=== PATIENT | female | born 1945 | race Caucasian/White ===

== ENCOUNTER 2016-09-16 12:32 | Emergency (ER) | payer MEDICARE, OTHER | END 2016-09-16 16:19 | disposition home or self-care (01) | DX: R07.89 Other chest pain (principal); R10.13 Epigastric pain; K76.0 Fatty (change of) liver, not elsewhere classified; Q44.6 Cystic disease of liver; I10 Essential (primary) hypertension; E78.00 Pure hypercholesterolemia, unspecified; J45.909 Unspecified asthma, uncomplicated; M79.7 Fibromyalgia; Z79.82 Long term (current) use of aspirin ==

== ENCOUNTER 2017-05-17 10:15 | Outpatient (CLI) | payer MEDICARE, OTHER | END 2017-05-17 10:16 | disposition home or self-care (01) | LOC: SC 10:15 | PROVIDERS: ATTEND Internal Medicine Pulmonary Disease | DX: G47.33 Obstructive sleep apnea (adult) (pediatric) (principal) | CPT/HCPCS: 99213; G0463; 99212 ==

== ENCOUNTER 2017-08-06 13:34 | Outpatient (CLI) | payer MEDICARE, OTHER ==
--- NOTE | 2017-08-06 15:46 | XRAY Report ---
THREE VIEW LEFT ANKLE: 08/06/2017 CLINICAL INDICATION: Pain. FINDINGS: AP, lateral, oblique views of the left ankle demonstrate no evidence of acute fracture or dislocation. Lateral greater than medial soft tissue swelling is present. No effusion is seen. Small plantar calcaneal spurring is noted. IMPRESSION: SOFT TISSUE SWELLING, BUT NO EVIDENCE OF ACUTE FRACTURE. TD: 08/06/2017 15:45
--- NOTE | 2017-08-06 15:51 | XRAY Report ---
THREE VIEW LEFT FOOT: 08/06/2017 CLINICAL INDICATION: Pain. FINDINGS: AP, lateral, and oblique views of left foot demonstrate mild osteoarthritis of the first metatarsophalangeal joint. There is no evidence of acute fracture or dislocation. No radiopaque foreign body is seen in the soft tissues. IMPRESSION: MILD OSTEOARTHRITIS. TD: 08/06/2017 15:47
== END 2017-08-06 13:35 | disposition home or self-care (01) ==
LOC: DI.S 13:34
PROVIDERS: ATTEND Physician Assistant Medical
DX: M19.072 Primary osteoarthritis, left ankle and foot (principal); R22.42 Localized swelling, mass and lump, left lower limb

== ENCOUNTER 2017-08-18 13:50 | Outpatient (CLI) | payer MEDICARE, OTHER ==
--- NOTE | 2017-08-18 15:02 | XRAY Report ---
THREE VIEW LEFT ANKLE: 08/18/2017 CLINICAL INDICATION: Hematoma, pain. FINDINGS: AP, oblique, lateral views of the left ankle are compared to previous films of 08/06/2017. There is no evidence of fracture. Soft tissue swelling appears stable. No effusion is present. Degenerative changes are stable. IMPRESSION: MILD DEGENERATIVE CHANGES. SOFT TISSUE SWELLING. NO EVIDENCE OF FRACTURE. TD: 08/18/2017 15:00
--- NOTE | 2017-08-18 15:03 | XRAY Report ---
TWO VIEW LEFT LOWER LE08/18/2017 CLINICAL INDICATION: Persistent pain, hematoma. FINDINGS: Frontal and lateral views of the left lower leg demonstrate no evidence of acute fracture. Soft tissue swelling is present. No foreign body is seen. IMPRESSION: SOFT TISSUE SWELLING, BUT NO EVIDENCE OF ACUTE FRACTURE. TD: 08/18/2017 15:02
== END 2017-08-18 13:51 | disposition home or self-care (01) ==
LOC: DI 13:50
PROVIDERS: ATTEND Family Medicine
DX: M19.072 Primary osteoarthritis, left ankle and foot (principal); R22.42 Localized swelling, mass and lump, left lower limb

== ENCOUNTER 2017-09-09 12:41 | Outpatient (CLI) | payer MEDICARE, OTHER ==
[2017-09-09 17:58] LABS: CHOL/HDL RATIO 3.4 (<4.4); CHOLESTEROL 156 mg/dL; HDL CHOLESTEROL 46 mg/dL; LDL CHOLESTEROL,CALCULATED 85 mg/dL; LDL/HDL RATIO 1.8 (<4.4); VLDL CHOLESTEROL 25 mg/dL
== END 2017-09-09 12:42 | disposition home or self-care (01) ==
LOC: LAB.F 12:41
PROVIDERS: ATTEND Physician Assistant Medical
DX: Z00.00 Encounter for general adult medical examination without abnormal findings (principal); E78.5 Hyperlipidemia, unspecified
CPT/HCPCS: 36415; 80061; 83721

== ENCOUNTER 2017-09-16 08:00 | Outpatient (CLI) | payer MEDICARE, OTHER | END 2017-09-16 08:01 | disposition home or self-care (01) | LOC: LAB.F 08:00 | PROVIDERS: ATTEND Physician Assistant Medical | DX: R22.42 Localized swelling, mass and lump, left lower limb (principal); M79.605 Pain in left leg | CPT/HCPCS: 36415; 85379 ==

== ENCOUNTER 2017-09-29 10:56 | Outpatient (CLI) | payer MEDICARE, OTHER ==
--- NOTE | 2017-09-29 12:43 | Ultrasound Report ---
LEFT LEG VENOUS DUPLEX: 09/29/2017 CLINICAL INDICATION: Localized swelling. TECHNIQUE: Real-time sonographic vascular imaging was performed by the master plumber through the left leg utilizing both color flow and Doppler spectral analysis. Multiple bottling equipment sales representative static images were saved for review. FINDINGS: A left lower extremity venous sonogram is performed revealing the common femoral, superficial femoral, profunda femoris, and popliteal veins to be adequately visualized without intraluminal defects. There is normal venous compression, augmentation, phasicity, and spontaneity of venous flow. In the calf, the visualized more cephalad portions of posterior tibial and peroneal veins are grossly compressible, without filling defects. Incidental note is made of a 1.5 cm Miller's cyst in the left popliteal fossa. IMPRESSION: NO EVIDENCE OF DEEP VENOUS THROMBOSIS. TD: 09/29/2017 12:42
== END 2017-09-29 10:57 | disposition home or self-care (01) ==
LOC: DI 10:56
PROVIDERS: ATTEND Physician Assistant Medical
DX: R22.42 Localized swelling, mass and lump, left lower limb (principal); M79.605 Pain in left leg

== ENCOUNTER 2017-12-02 12:08 | Outpatient (CLI) | payer MEDICARE, OTHER ==
[2017-12-02 17:33] LABS: ALBUMIN 4.1 g/dL (3.2-5.5); ALBUMIN/GLOBULIN RATIO 1.8 (1.0-2.2); BILIRUBIN,TOTAL 0.5 mg/dL (0.2-1.0); CALCIUM 8.8 mg/dL (8.5-10.3); CREATININE 0.7 mg/dL (0.4-1.0); TOTAL PROTEIN 6.4 g/dL (6.7-8.2)
== END 2017-12-02 12:09 | disposition home or self-care (01) ==
LOC: LAB.F 12:08
PROVIDERS: ATTEND Physician Assistant Medical
DX: I10 Essential (primary) hypertension (principal)
CPT/HCPCS: 36415; 80053

== ENCOUNTER 2018-06-28 13:04 | Outpatient (CLI) | payer MEDICARE, OTHER | END 2018-06-28 13:05 | disposition home or self-care (01) | LOC: SC 13:04 | PROVIDERS: ATTEND Internal Medicine Pulmonary Disease | DX: G47.33 Obstructive sleep apnea (adult) (pediatric) (principal) | CPT/HCPCS: 99213; G0463; 99212 ==

== ENCOUNTER 2018-07-07 11:29 | Outpatient (CLI) | payer MEDICARE, OTHER ==
[2018-07-07 17:37] LABS: BASOPHILS # (AUTO) 0.1 10^3/uL (0.0-0.1); BASOPHILS % (AUTO) 1.1 %; EOSINOPHILS # (AUTO) 0.1 10^3/uL (0.0-0.7); EOSINOPHILS % (AUTO) 2.7 %; HGB - HEMOGLOBIN 13.2 g/dL (12.0-16.0); LYMPHOCYTES # (AUTO) 1.8 10^3/uL (1.5-3.5); LYMPHOCYTES % (AUTO) 38.2 %; MEAN CORPUSCULAR HEMOGLOBIN 28.8 pg (27.0-31.0); MEAN CORPUSCULAR HGB CONC 33.1 g/dL (32.0-36.0); MEAN CORPUSCULAR VOLUME 87.1 fL (81.0-99.0); MEAN PLATELET VOLUME 8.2 fL (7.9-10.8); MONOCYTES # (AUTO) 0.4 10^3/uL (0.0-1.0); MONOCYTES % (AUTO) 8.7 %; NEUTROPHILS # (AUTO) 2.3 10^3/uL (1.5-6.6); NEUTROPHILS % (AUTO) 49.3 %; PLT - PLATELET COUNT 263 10^3/uL (130-450); RED BLOOD COUNT 4.57 10^6/uL (4.20-5.40); RED CELL DISTRIBUTION WIDTH 13.8 % (12.0-15.0); WHITE BLOOD COUNT 4.6 x10^3/uL (4.8-10.8)
[2018-07-07 19:03] LABS: ALBUMIN 4.3 g/dL (3.2-5.5); ALBUMIN/GLOBULIN RATIO 1.6 (1.0-2.2); ALKALINE PHOSPHATASE 51 IU/L (42-121); ALT ALANINE AMINOTRANSFERASE 16 IU/L (10-60); AST ASPARTATE AMINOTRANSFERASE 20 IU/L (10-42); BILIRUBIN,TOTAL 0.6 mg/dL (0.2-1.0); BUN - BLOOD UREA NITROGEN 16 mg/dL (6-20); CALCIUM 9.3 mg/dL (8.5-10.3); CARBON DIOXIDE - CO2 29 mmol/L (21-32); CHLORIDE 102 mmol/L (101-111); CHOL/HDL RATIO 3.5 (<4.4); CHOLESTEROL 180 mg/dL; CREATININE 0.8 mg/dL (0.4-1.0); GFR - MDRD 70 (>89); GLUCOSE 86 mg/dL (70-100); HDL CHOLESTEROL 51 mg/dL; LDL CHOLESTEROL,CALCULATED 101 mg/dL; SODIUM 139 mmol/L (135-145); VLDL CHOLESTEROL 28 mg/dL
[2018-07-07 19:40] LABS: HB2 TOTAL 13.7 g/dL; HEMOGLOBIN A1C 0.49 g/dL; HEMOGLOBIN A1C % 5.4 % (4.6-6.2)
== END 2018-07-07 11:30 | disposition home or self-care (01) ==
LOC: LAB.F 11:29
PROVIDERS: ATTEND Physician Assistant Medical
DX: I10 Essential (primary) hypertension (principal); E78.5 Hyperlipidemia, unspecified; R73.9 Hyperglycemia, unspecified; R73.01 Impaired fasting glucose
CPT/HCPCS: 36415; 80053; 80061; 83036; 83721; 85025

== ENCOUNTER 2018-08-09 11:42 | Outpatient (CLI) | payer MEDICARE, OTHER ==
--- NOTE | 2018-08-10 10:06 | DEXA Report ---
Reason: ASYMPTOMATIC MENOPAUSAL STATE Procedure Date: 08/09/2018 Accession Number: [id number] / [id number] Procedure: DEX - Dexa Spine and/or Hip CPT Code: FULL RESULT: EXAM: Dexa Spine and/or Hip DATE: 08/09/2018 1:11 PM CLINICAL HISTORY: ASYMPTOMATIC MENOPAUSAL STATE TECHNIQUE: Dual energy x-ray absorptiometry (DXA) was performed on a tvCompass System. Regions measured are the AP Spine, femoral neck, and if needed forearm. COMPARISON: None. In accordance with the International Society for Clinical Densitometry (ISCD) guidelines, data from previous exams may be reanalyzed using current recommendations and techniques. This is done to allow a more accurate basis for comparison with the current study. FINDINGS: The data for the lumbar spine is as follows: BMD (g/cm/cm) T-SCORE Z-SCORE REGION L1 0.795 -2.8 -1.8 L2 0.812 -3.2 -2.2 L3 0.844 -3.0 -1.9 L4 0.903 -2.5 -1.5 TOTAL 0.842 -2.8 -1.8 NOTE: All evaluable vertebrae are used for classification The data for the hip is as follows: BMD (g/cm/cm) T-SCORE Z-SCORE REGION Neck 0.736 -2.2 -0.8 TOTAL 0.771 -1.9 -0.7 NOTE: The femoral neck or total proximal femur, whichever is lowest, is used for classification. IMPRESSION: THE WHO CLASSIFICATION BASED ON THE INTERNATIONAL REFERENCE STANDARD IS OSTEOPOROSIS. THE FRACTURE RISK IS HIGH. RECOMMENDATION: Patients with diagnosis of osteoporosis or osteopenia should have regular bone mineral density assessment. For those eligible for Medicare, routine testing is allowed once every 2 years. Testing frequency can be increased for patients who have rapidly progressing disease or for those who are receiving medical therapy to restore bone mass. COMMENT: World Health Organization (WHO) definitions for osteoporosis and osteopenia: NORMAL BMD: T-score at -1.0 or higher, fracture risk is low OSTEOPENIA BMD: T-score between -1.0 and -2.5, fracture risk is increased. OSTEOPOROSIS BMD: T-score at -2.5 or lower, fracture risk is high. National Osteoporosis Foundation recommends: 1. Obtain adequate dietary calcium (at least 1200 mg per day) and vitamin D (400-800 international units per day). 2. Participate, as appropriate, in regular weightbearing and muscle-strengthening exercise. 3. Avoid tobacco use and reduce alcohol and caffeine intake. 4. For more detailed information see the website at www.NOF.org.
== END 2018-08-09 11:43 | disposition home or self-care (01) ==
LOC: DI 11:42
PROVIDERS: ATTEND Physician Assistant Medical
DX: M81.0 Age-related osteoporosis without current pathological fracture (principal)
CPT/HCPCS: 77080

== ENCOUNTER 2018-08-09 11:45 | Outpatient (CLI) | payer MEDICARE, OTHER ==
--- NOTE | 2018-08-10 09:28 | Mammography Report ---
Reason: SCREENING MAMMO Procedure Date: 08/09/2018 Accession Number: [id number] / [id number] Procedure: VOLODYMYR - Screening Mammo w/Jay Jay CPT Code: FULL RESULT: EXAM: Screening Mammo w/Jay Jay DATE: 08/09/2018 1:29 PM CLINICAL HISTORY: Screening encounter. History of early menses. TECHNIQUE: Bilateral CC and MLO views were obtained. A right laterally exaggerated CC views obtained. COMPARISON: None FINDINGS: The breasts demonstrate scattered fibroglandular densities bilaterally. No suspicious masses, clustered microcalcifications, or regions of architectural distortion are identified. IMPRESSION: Negative examination RECOMMENDATION: Routine annual screening unless otherwise clinically indicated. BIRADS CATEGORY 1: Negative STANDARD QUALIFYING STATEMENTS: 1. This examination was not reviewed with the aid of Computer-Aided Detection (CAD). 2. A negative or benign imaging report should not delay biopsy if clinically suspicious findings are present. Consider surgical consultation if warrented. More than 5% of cancers are not identified by imaging. 3. Dense breasts may obscure an underlying neoplasm. 4. This examination was reviewed with the aid of 3D breast imaging (tomosynthesis).
== END 2018-08-09 11:46 | disposition home or self-care (01) ==
LOC: DI 11:45
PROVIDERS: ATTEND Physician Assistant Medical
DX: Z12.31 Encounter for screening mammogram for malignant neoplasm of breast (principal)
CPT/HCPCS: 77063; 77067

== ENCOUNTER 2018-08-14 17:29 | Emergency (ER) | payer MEDICARE, OTHER ==
--- NOTE | 2018-08-14 18:39 | XRAY Report ---
Reason: injury Procedure Date: 08/14/2018 Accession Number: [id number] / [id number] Procedure: XR - Wrist 4 View LT CPT Code: FULL RESULT: EXAM: LEFT WRIST RADIOGRAPHY EXAM DATE: 08/14/2018 06:23 PM. CLINICAL HISTORY: Injury. COMPARISON: None. TECHNIQUE: 4 views. FINDINGS: Bones: Mildly comminuted, mildly impacted intra-articular distal radial fracture is seen with overall dorsal angulation of the distal radius. Osteopenia evident. Joints: Normal. No subluxations. Soft Tissues: Soft tissue swelling at the wrist. IMPRESSION: 1. Mildly comminuted, mildly impacted interarticular distal radial fracture is seen with overall dorsal angulation. RADIA
[2018-08-14] MEDS ORDERED: BUPIVACAINE 0.5% PF 10 ML VIAL SUBQ STA (18:47)
--- NOTE | 2018-08-14 19:18 | ED Physician Documentation ---
History of Present Illness - Stated complaint Stated Complaint: LT WRIST INJ - Chief complaint Chief Complaint: Ext Problem - History obtained from History obtained from: Patient - History of Present Illness Timing: Today Pain level max: 6 Pain level now: 5 - Additonal information Additional information: 73-year-old female was helping to move furniture when she felt a pop in her wrist. She is right-handed. Pain is in the left wrist. Has had a fracture in this wrist in the past. Worse with movement and better with rest and ice. 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 - Present Medications Home Medications: Ambulatory Orders Medication Instructions Recorded Confirmed Aspirin [Aspirin EC] 81 mg PO BID 09/16/16 08/14/18 Losartan [Cozaar] 100 mg PO DAILY 09/16/16 08/14/18 Metoprolol Tartrate 50 mg PO DAILY 09/16/16 08/14/18 Omeprazole [PriLOSEC] 20 mg PO DAILY 09/16/16 08/14/18 Spironolactone 25 mg PO DAILY 09/16/16 08/14/18 Hydrocodone/Acetaminophen 1 - 2 each PO Q6H PRN #14 tablet 08/14/18 [Hydrocodon-Acetaminophen 5-325] - Allergies Allergies/Adverse Reactions: Allergies Allergy/AdvReac Type Severity Reaction Status Date / Time Penicillins Allergy Unknown Verified 08/14/18 17:41 - Social History Does the pt smoke?: No Smoking Status: Never smoker Does the pt drink ETOH?: Yes Does the pt have substance abuse?: No - Immunizations Immunizations are current?: Yes PD ED PE NORMAL - Vitals Vital signs reviewed: Yes - General General: Alert and oriented X 3, No acute distress - HEENT HEENT: Moist mucous membranes - Neck Neck: Supple, no meningeal sign - Cardiac Cardiac: RRR - Respiratory Respiratory: No respiratory distress, Clear bilaterally - Derm Derm: Warm and dry - Extremities Extremities: Other (Tender to palpation over the dorsal aspect of the left wrist, specifically near the distal radius. No gross deformity. Neurovascularly intact.) - Neuro Neuro: Alert and oriented X 3 Results - Vitals Vitals: Vital Signs - 24 hr 08/14/18 08/14/18 17:39 20:32 Temperature 36.3 C L Heart Rate 62 50 L Respiratory 20 19 Rate Blood Pressure 151/101 H 147/87 H O2 Saturation 99 98 Oxygen O2 Source Room air - Rads (name of study) Left wrist x-ray Radiology: Prelim report reviewed, EMP read contemporaneously, See rad report (Mildly comminuted, mildly impacted intra-articular distal radius fracture is seen with overall dorsal angulation.) Left wrist x-ray postreduction Radiology: Prelim report reviewed, EMP read contemporaneously, See rad report (Slightly improved alignment of transverse distal radius fracture with mild residual dorsal lateral displacement of the dominant distal fracture fragment) Procedures - Splint (location) Left forearm/wrist Splint applied by: Physician, Tech Type of splint: Fiberglass, Short arm, Sugar tong Other: Patient tolerated well, No complications, Neurovascular intact, Sling provided - Reduction Body part reduced: Left, Wrist Fracture or dislocation: Fracture Anesthesia: Hematoma block, Marcaine (enter cc) (Marcaine 0.5%, 10 mL's) Reduction aftercare: NV intact, Xray confirms reduction, Alignment improved, Splint applied, Sling, Patient tolerated well PD MEDICAL DECISION MAKING - ED course Complexity details: reviewed results, re-evaluated patient, considered differential, d/w patient, d/w program evaluation consultant ED course: 73-year-old female presents to the emergency department with a left distal radius fracture. Reduced under hematoma block. Tolerated well. Discussed the case and reviewed the images with Dr. Oswald, orthopedics who recommends follow-up in clinic in 4-5 days. Neurovascularly intact. Patient counseled regarding signs and symptoms for which I believe and urgent re-evaluation would be necessary. Patient with good understanding of and agreement to plan and is comfortable going home at this time This document was made in part using voice recognition software. While efforts are made to proofread this document, sound alike and grammatical errors may occur. Departure - Departure Disposition: 01 Home, Self Care Clinical Impression: Distal radius fracture, left Qualifiers: Encounter type: initial encounter Fracture type: closed Fracture morphology: unspecified fracture morphology Qualified Code(s): S52.502A - Unspecified fracture of the lower end of left radius, initial encounter for closed fracture Condition: Good Instructions: ED Fx Colles Wrist Redu Requ Follow-Up: Margarette Benitez PA-C [Primary Care Provider] - [facility] [Provider Group] Prescriptions: Hydrocodone/Acetaminophen [Hydrocodon-Acetaminophen 5-325] 1 - 2 each PO Q6H PRN #14 tablet PRN Reason: pain Comments: Follow-up with orthopedics in approximately 4-5 days for a repeat x-ray and to be changed into a cast at that time. Return if you worsen. I discussed your care with Dr. Margret howell. Do not drink alcohol or drive while on narcotic pain medicine. Note that many narcotic pain relievers also contain tylenol/acetaminophen. Please ensure that your total dose of acetaminophen from all sources does not exceed 3 grams (3000mg) per day. You may constipated on this medication, take a stool softener such as "Colace" twice a day while you are on it. Also recommend a debf-twv-vbvftcc laxative such as senna or MiraLAX any day that you do not have a bowel movement. If you received narcotic pain medication in the emergency department, do not drive or operate machinery for the next 24 hours. Discharge Date/Time: 08/14/18 20:33
--- NOTE | 2018-08-14 20:30 | XRAY Report ---
Reason: post reduction Procedure Date: 08/14/2018 Accession Number: [id number] / [id number] Procedure: XR - Wrist 2 View LT CPT Code: FULL RESULT: EXAM: LEFT WRIST RADIOGRAPHY EXAM DATE: 08/14/2018 08:07 PM. CLINICAL HISTORY: Left wrist fracture, postreduction COMPARISON: WRIST 4 VIEW LT 08/14/2018 6:09 PM. TECHNIQUE: 2 views. FINDINGS: Bones: Redemonstration of transverse distal radial fracture, with interval decreased impaction and dorsal angulation at the fracture site, and residual approximately 3 mm lateral and 3 mm dorsal displacement of the dominant distal fracture fragment. Joints: Normal alignment. Mild osteophytosis at the first CMC joint, as before, compatible with osteoarthritis. Soft Tissues: Swelling overlying the fracture site. IMPRESSION: Slightly improved alignment of transverse distal radial fracture with mild residual dorsolateral displacement of the dominant distal fracture fragment. RADIA
[2018-08-14 20:34] VITALS: BP 147/87
== END 2018-08-14 20:33 | disposition home or self-care (01) ==
LOC: ED 17:29
DX: S52.502A Unspecified fracture of the lower end of left radius, initial encounter for closed fracture (principal); X50.1XXA Overexertion from prolonged static or awkward postures, initial encounter; Y93.89 Activity, other specified; I10 Essential (primary) hypertension; E78.00 Pure hypercholesterolemia, unspecified; Z79.82 Long term (current) use of aspirin
CPT/HCPCS: 25600; 25605; 29125; 99283; 99284

== ENCOUNTER 2018-12-06 12:50 | Outpatient (CLI) | payer MEDICARE, OTHER | END 2018-12-06 12:51 | disposition home or self-care (01) | LOC: SC 12:50 | PROVIDERS: ATTEND Nurse Practitioner Family | DX: G47.33 Obstructive sleep apnea (adult) (pediatric) (principal) | CPT/HCPCS: 99214; G0463; 99212 ==

== ENCOUNTER 2019-03-29 11:03 | Outpatient (CLI) | payer MEDICARE, OTHER ==
[2019-03-29 12:25] VITALS: BP 128/64
--- NOTE | 2019-03-29 12:26 | SLEEP CARE CONSULTATION ---
Information from patient questionnaire entered by Thania Mejia. I have reviewed and concur with the information entered by Thania Mejia. This document represents the service I personally performed and the decisions made by me, Belinda Portillo, RN, MSN, CHIEF SPECIALIST LEED. History of Present Illness Previous diagnosis: Severe, Obstructive Sleep Apnea-Hypopnea Syndrome AHI: 38.8 Reason for CPAP/BiPAP follow up: other (2 month) Equipment type: CPAP Equipment obtained from: [facility] Mask style: Nasal Mask brand: Respironics Backup mask available: Yes Last cushion change: 2 weeks ago HPI additional information: Restarted CPAP and states has been using nightly. CPAP Compliance Data - Data Reviewed with Patient Average duration of nightly device use: 8.65 Compliance rate %: 100 (60 days) Current pressure setting (cmH2O): 6-8 Humidity settin Heated hose settin Average residual AHI: 3.4 Average large leak: 47 mins 56 sec Subjective Patient concerns: reports: air blowing in eyes (when mask dislodges 2-4 times a night), mask leak noise, condensation in mask/hose (rare), nasal congestion (seasonally - mild now after cold), dry mouth, nose, throat (mouth - occasionally ), other (strap will not stay at neck - constant dislodging mask in the night). denies: aerophagia, mask discomfort, epistaxis Observed to snore while using device: No Current pressure setting perceived as: comfortable On therapy, patient: reports: sleeping better, awakening more refreshed, being more awake and alert during the day, more rested overall. denies: drowsiness while driving Initial [place] Sleepiness Scale score: 3 Current [place] Sleepiness Scale score: 6 Allergies and Home Medications Known drug allergies: Yes (vicodin , penicillin) Home medication list reviewed: Yes (no changes ) Allergy and home medication list: Medication Name (generic/name brand) Strength & Dosage Spironolactone 25mg tab one every morning Metoprolol Tartrate 50mg tab one daily Losartan Potassium 100mg tab one am and pm Diclofenac Sodium 1% Transdermal Gel Apply 2-4 grams four times daily, prn Omeprazole delayed release 20mg cap one daily Multivitamins Tab twice daily Fish Oil Concentrate 1000mg cap one daily Red Yeast Rice 600mg cap one daily at bedtime Magnesium Oxide 400mg cap one daily at bedtime Aspirin EC delayed release 8mg tab one twice daily Xenia Root 550mg cap one daily Flaxseed Oil 1300mg cap one daily Vitamin B-12 250mcg tab one daily Glucosamine Complex Tab one daily Cinnamon Cap one daily Turmeric [employer] brand 1 cap daily CoQ10 100mg cap Kyolic (garlic) 100mg Allergy List Penicillin V Potassium Vicodin Review of Systems Review of systems same as previous: No (recovering from recent cold with residual cough) Physical Exam Blood Pressure: 128/64 Cuff size: long Heart Rate: 50 O2 Saturation: 98 Height: 5 ft 5 in Weight: 183 lb 6.4 oz Body Mass Index: 30.5 BMI Classification: Obesity Class 1 Lungs: clear bilaterally Impression and Plan 1. Obstructive Sleep Apnea-Hypopnea Syndrome, severe, with good treatment compliance and good apnea control. On CPAP therapy, the patient has better sleep quality and is more rested overall. For nasal congestion and oral dryness, she was shown how to increase the humidity on a sample CPAP with hand writtent instructions. The heated hose only needs to be raised if condensation. For her mask dislodging, I will order the headgear adaptor to help fit better which could also reduce oral dryness from mask leaks. Patient's apnea severity and rationale for treatment to reduce apnea, improve sleep quality and reduce cardiovascular and cerebrovascular events was reviewed. I also reviewed the benefit of consistent device use of CPAP for hypertension, gastric reflux, fibromyalgia. * Continue CPAP pressure at 6-8 cmH2O * adjust humidity * headgear adaptor * Notify me if snoring with mask or feeling that the pressure is too much or too little * Attempt to lose weight * Return for follow up in 3 months , or sooner if concerns arise I spent 100% of this 30 minute visit face to face with the patient with greater than 50% of this was spent time counseling the patient and coordination of care.
== END 2019-03-29 11:04 | disposition home or self-care (01) ==
LOC: SC 11:03
PROVIDERS: ATTEND Nurse Practitioner Family
DX: G47.33 Obstructive sleep apnea (adult) (pediatric) (principal)
CPT/HCPCS: 99214; G0463; 99212

== ENCOUNTER 2019-09-20 16:25 | Outpatient (CLI) | payer MEDICARE, OTHER ==
--- NOTE | 2019-09-20 13:55 | SLEEP CARE CONSULTATION ---
Information from patient questionnaire entered by Leonila Miller. I have reviewed and concur with the information entered by Leonila Miller. This document represents the service I personally performed and the decisions made by me, Belinda Portillo, RN, MSN, PUBLIC SAFETY OFFICER. History of Present Illness Service Date and Time: 09/20/2019 1330 Previous diagnosis: Severe, Obstructive Sleep Apnea-Hypopnea Syndrome AHI: 38.8 Reason for follow up: six month Equipment type: CPAP Equipment obtained from: [facility] (delay in getting equipment due to DME having wrong address until recently corrected) Mask style: Nasal Mask brand: Respironics Backup mask available: Yes Last cushion change: 1-2 weeks ago Prior sleep studies: Yes CPAP Compliance Data - Data Reviewed with Patient Average duration of nightly device use: 8h 20m Compliance rate %: 97.8 Current pressure setting (cmH2O): 6-8 Humidity settin Heated hose settin Average residual AHI: 2.9 Average large leak: 27m 4s Subjective Patient concerns: reports: dry mouth, nose, throat (dry mouth sometimes but none since new headgear), other (mask disloding and mask leaks resolved with new headgear attachment - slept without disruption since then). denies: aerophagia, mask discomfort, air blowing in eyes, mask leak noise, condensation in mask/hose, nasal congestion, epistaxis Observed to snore while using device: No Current pressure setting perceived as: comfortable On therapy, patient: reports: sleeping better, awakening more refreshed, being more awake and alert during the day, more rested overall, other. denies: drowsiness while driving Initial [place] Sleepiness Scale score: 3 Allergies and Home Medications Home medication list reviewed: No (no changes stated) Review of Systems Review of systems same as previous: Yes Physical Exam Height: 5 ft 5 in Impression and Plan 1. Obstructive Sleep Apnea-Hypopnea Syndrome, severe, with good treatment compliance and good apnea control. On CPAP therapy, the patient has better sleep quality and is more rested overall. Since receiving her new headgear the past 4 days, she has slept through the night without disruption of mask dislodging or mask leaks. Her oral dryness also has since resolved. She is very pleased with benefit of CPAP especially since her new headgear. If return of oral dryness, she is to adjust humidity higher. There was a delay in receiving her CPAP supplies due to wrong address input from DME that is now corrected. Patient's apnea severity and rationale for treatment to reduce apnea, improve sleep quality and reduce cardiovascular and cerebrovascular events was reviewed. I also reviewed the additional benefit of consistent device use of CPAP for those with hypertension, and arrhythmia. * Continue CPAP pressure at 6-8 cmH2O * Adjust humidity * Notify me if snoring with mask or feeling that the pressure is too much or too little * Call this office if any problems using CPAP * Return for follow up in 1 year, or sooner if concerns arise Visit Type: Telehealth Phone (to minimize the risk of COVOD 19 exposure, the patient agrees to this telehealth visit and billing of her insurance) Location of Provider: Home Patient agrees and consents to this telehealth visit type: Yes Time Spent with Patient (minutes): 10 Provider Statement: I spent 100% of the Telehealth Phone Call with the patient with greater than 50% spent counseling the patient and coordination of care.
== END 2019-09-20 16:26 | disposition home or self-care (01) ==
LOC: SC 16:25
PROVIDERS: ATTEND Nurse Practitioner Family
DX: G47.33 Obstructive sleep apnea (adult) (pediatric) (principal)

== ENCOUNTER 2020-01-17 08:00 | Outpatient (CLI) | payer MEDICARE, OTHER ==
[2020-01-17 15:15] LABS: BASOPHILS # (AUTO) 0.1 10^3/uL (0.0-0.1); EOSINOPHILS # (AUTO) 0.1 10^3/uL (0.0-0.7); HGB - HEMOGLOBIN 13.4 g/dL (12.0-16.0); LYMPHOCYTES # (AUTO) 1.7 10^3/uL (1.5-3.5); LYMPHOCYTES % (AUTO) 35.3 %; MEAN CORPUSCULAR HEMOGLOBIN 28.7 pg (27.0-31.0); MEAN CORPUSCULAR HGB CONC 31.3 g/dL (32.0-36.0); MEAN CORPUSCULAR VOLUME 91.6 fL (81.0-99.0); MONOCYTES # (AUTO) 0.4 10^3/uL (0.0-1.0); MONOCYTES % (AUTO) 7.6 %; NEUTROPHILS # (AUTO) 2.6 10^3/uL (1.5-6.6); NEUTROPHILS % (AUTO) 53.7 %; PLT - PLATELET COUNT 233 10^3/uL (130-450); RED BLOOD COUNT 4.67 10^6/uL (4.20-5.40); RED CELL DISTRIBUTION WIDTH 12.8 % (12.0-15.0); WHITE BLOOD COUNT 4.9 x10^3/uL (4.8-10.8)
[2020-01-17 15:19] LABS: BILIRUBIN,URINE NEGATIVE (NEGATIVE); GLUCOSE, URINE (UA) NEGATIVE (NEGATIVE); KETONES,URINE (UA) NEGATIVE (NEGATIVE); LEUKOCYTE ESTERASE, URINE NEGATIVE (NEGATIVE); NITRITE,URINE NEGATIVE (NEGATIVE); OCCULT BLOOD,URINE NEGATIVE (NEGATIVE); PH,URINE 5.5 PH (5.0-7.5); PROTEIN,URINE NEGATIVE (NEGATIVE); UROBILINOGEN,URINE 0.2 (NORMAL) E.U./dL (NORMAL)
[2020-01-17 15:34] LABS: CLARITY,URINE CLEAR (CLEAR)
[2020-01-17 15:44] LABS: BACTERIA,URINE Few /HPF (None Seen); RBC,URINE None Seen /HPF (0-5); SQUAMOUS EPITHELIAL CELL,UR NONE SEEN (<= Few)
[2020-01-17 16:18] LABS: ALBUMIN 4.4 g/dL (3.2-5.5); ALBUMIN/GLOBULIN RATIO 1.6 (1.0-2.2); BILIRUBIN,TOTAL 0.5 mg/dL (0.2-1.0); CALCIUM 9.2 mg/dL (8.5-10.3); CREATININE 0.8 mg/dL (0.4-1.0); TOTAL PROTEIN 7.1 g/dL (6.7-8.2)
--- NOTE | 2020-01-17 17:23 | XRAY Report ---
PROCEDURE: Thoracic Spine 3 View INDICATIONS: THORACIC BACK PAIN TECHNIQUE: 3 views of the thoracic spine were acquired. COMPARISON: None. FINDINGS: Bones: No fractures or dislocations. No suspicious bony lesions. 12 pairs of ribs are noted, and a ppear intact where visualized. Moderate degenerative disc changes noted throughout the thoracic spine . Soft tissues: No paravertebral stripe thickening. IMPRESSION: 1. Moderate multilevel degenerative disc disease. 2. No fracture. No acute osseous lesion. If there is continued clinical concern for pathology, then M RI should be considered for further evaluation. Reviewed by: Shayy Monaco MD, PhD on 01/17/2020 5:22 PM PDT Approved by: Shayy Monaco MD, PhD on 01/17/2020 5:22 PM PDT Station ID: [id number]
== END 2020-01-17 23:59 | disposition home or self-care (01) ==
LOC: DI.S 08:00
PROVIDERS: ATTEND Emergency Medicine
DX: M51.34 Other intervertebral disc degeneration, thoracic region (principal); M54.5 Low back pain; I10 Essential (primary) hypertension
CPT/HCPCS: 36415; 72072; 80053; 81001; 85025; 87086

== ENCOUNTER 2020-09-18 10:37 | Outpatient (CLI) | payer MEDICARE, OTHER ==
--- NOTE | 2020-09-19 12:52 | Mammography Report ---
BILATERAL DIGITAL DIAGNOSTIC MAMMOGRAM 3D/2D: 09/18/2020 CLINICAL: Diffuse right breast pain. Comparison is made to exam dated: 08/09/2018 mammogram - [facility]. There are sca ttered fibroglandular elements in both breasts. No significant masses, calcifications, or other findings are seen in either breast. IMPRESSION: NEGATIVE There is no abnormality seen in the right breast to correspond with the diffuse pain in the outer asp ect, however, clinical followup is recommended. There is no mammographic evidence of malignancy. A 1 year screening mammogram is recommended. This exam was interpreted at Station ID: [id number]. NOTE: For mammograms, a report in lay terms will be sent to the patient. Approximately 15% of breast malignancies will not be visualized mammographically. In the management of a palpable breast mass, a negative mammogram must not discourage biopsy of a clinically suspicious lesion. Electronically Signed By: Edson Felix M.D. ddp/:09/18/2020 11:41:55 ACR BI-RADS Category 1: Negative 3341F PARENCHYMAL PATTERN: (A) - The breast(s) demonstrate(s) scattered fibroglandular densities. BI-RADS CATEGORY: (1) - 1 RECOMMENDATION: (ANNUAL) - Recommend routine annual screening mammography. [id number] 1 year screening LATERALITY: (B)
== END 2020-09-18 10:38 | disposition home or self-care (01) ==
LOC: DI 10:37
PROVIDERS: ATTEND Internal Medicine
DX: N64.4 Mastodynia (principal)

== ENCOUNTER 2020-09-24 11:23 | Outpatient (CLI) | payer MEDICARE, OTHER ==
--- NOTE | 2020-09-24 12:05 | SLEEP CARE CONSULTATION ---
Information from patient questionnaire entered by Thania Mejia. I have reviewed and concur with the information entered by Thania Mejia. This document represents the service I personally performed and the decisions made by , Elise Gage ARNP. History of Present Illness Service Date and Time: 09/24/2020 1123 Previous diagnosis: Severe, Obstructive Sleep Apnea-Hypopnea Syndrome AHI: 38.8 (in 2010) Reason for follow up: annual (last seen 09/2019) Equipment type: CPAP Equipment obtained from: [facility] (getting supplies as needed, easy to work with) Mask style: Nasal Mask brand: Respironics (Dreamwear, medium) Backup mask available: Yes (old mask) Last cushion change: 2 weeks ago Prior sleep studies: Yes Year and Where: 2010 [facility] in [facility] additional information: KALPESH MARTÍNEZ was diagnosed to have severe, AHI 38.8, obstructive sleep apnea- hypopnea syndrome and returned today for CPAP therapy annual follow-up. CPAP Compliance Data - Data Reviewed with Patient Average duration of nightly device use: 8 hr 6 min Compliance rate %: 97.2 (180 days) Current pressure setting (cmH2O): 6-8 Humidity settin Heated hose settin Average residual AHI: 3.3 Average large leak: 6 min 49 sec Subjective Patient concerns: reports: mask discomfort (sometimes feesl uncomfortable), air blowing in eyes (sleeps on side a lot), dry mouth, nose, throat, other (snore while using device). denies: aerophagia, mask leak noise, condensation in mask/hose, nasal congestion, epistaxis Observed to snore while using device: Yes (when she lays on back before going to sleep) Current pressure setting perceived as: comfortable On therapy, patient: reports: sleeping better, awakening more refreshed, being more awake and alert during the day, more rested overall. denies: drowsiness while driving Initial [place] Sleepiness Scale score: 3 (in 2015) Current [place] Sleepiness Scale score: 10 Allergies and Home Medications Home medication list reviewed: Yes (no changes) Review of Systems Review of systems same as previous: Yes (no changes) Physical Exam Heart Rate: 65 O2 Saturation: 98 Height: 5 ft 5 in Weight: 186 lb Body Mass Index: 30.9 BMI Classification: Obese Impression and Plan 1. Obstructive Sleep Apnea-Hypopnea Syndrome, severe, with good treatment compliance and good apnea control. On CPAP therapy, the patient has better sleep quality and is more rested overall. Patient has noted more snoring when she is on her back. To resolve snore, the CPAP pressure will be changed to 7-9 cmH20. Patient advised to contact this office if pressure change uncomfortable or if pressure change does not resolve snore. She has occasional mouth dryness. Oral dryness can be reduced by adjusting humidity setting higher or heated hose lower or by adjusting both settings. Patient advised that chronic oral dryness can affect dental health. She has more leaks when she is sleeping on her side. Mask leaks can be reduced by washing mask daily and changing mask cushions more frequently to improve mask seal and comfort. Additionally, mask leaks predominately from when patient sleeps on their side can be reduced by using a CPAP pillow. A CPAP pillow sample was shown. This and other styes can be purchased online. Patient's apnea severity and rationale for treatment to reduce apnea, improve sleep quality and reduce cardiovascular and cerebrovascular events was reviewed. I also reviewed the benefit of consistent device use of CPAP for hypertension and arrhythmia. * Change auto CPAP pressure to 7-9 cmH2O * Notify me if snoring with mask or feeling that the pressure is too much or too little * Attempt to lose weight * Call this office if any problems using CPAP * Return for follow up in 1 year, or sooner if concerns arise Counseling Topics: Spare mask, Weight loss health impact Visit Type: In Office Time Spent with Patient (minutes): 23 Provider Statement: I spent 100% of the Face to Face Visit with the patient with greater than 50% spent counseling the patient and coordination of care.
== END 2020-09-24 11:24 | disposition home or self-care (01) ==
LOC: SC 11:23
PROVIDERS: ATTEND Nurse Practitioner Family
DX: G47.33 Obstructive sleep apnea (adult) (pediatric) (principal); E66.9 Obesity, unspecified; Z68.30 Body mass index [BMI] 30.0-30.9, adult
CPT/HCPCS: 99213; G0463; 99212

== ENCOUNTER 2020-10-03 10:16 | Outpatient (CLI) | payer MEDICARE, OTHER ==
--- NOTE | 2020-10-03 11:20 | XRAY Report ---
PROCEDURE: Cervical Spine 2 View INDICATIONS: NECK PAIN TECHNIQUE: 4 view(s) of the cervical spine were acquired. COMPARISON: None. FINDINGS: No fracture. Scattered multilevel endplate spurring and diffuse facet arthropathy. Straightening of the normal lordotic curvature. Moderate narrowing of the C4-C5, C5-C6 and C6-C7 dis c spaces. Trace retrolisthesis of C4 on C5. Soft tissues: No prevertebral soft tissue swelling. Scattered carotid atherosclerotic calcified tor que. IMPRESSION: Multilevel cervical spondylosis and facet arthropathy as above. Carotid atherosclerosis Reviewed by: Ted Riojas MD on 10/03/2020 11:19 AM PDT Approved by: Ted Riojas MD on 10/03/2020 11:19 AM PDT Station ID: [id number]
[2020-10-03 15:11] LABS: BASOPHILS # (AUTO) 0.1 10^3/uL (0.0-0.1); BASOPHILS % (AUTO) 1.5 %; EOSINOPHILS # (AUTO) 0.1 10^3/uL (0.0-0.7); EOSINOPHILS % (AUTO) 4.2 %; HCT - HEMATOCRIT 41.6 % (37.0-47.0); LYMPHOCYTES # (AUTO) 1.5 10^3/uL (1.5-3.5); LYMPHOCYTES % (AUTO) 44.9 %; MEAN CORPUSCULAR HEMOGLOBIN 29.1 pg (27.0-31.0); MEAN CORPUSCULAR HGB CONC 31.3 g/dL (32.0-36.0); MEAN CORPUSCULAR VOLUME 93.1 fL (81.0-99.0); MEAN PLATELET VOLUME 10.1 fL (7.9-10.8); MONOCYTES # (AUTO) 0.3 10^3/uL (0.0-1.0); MONOCYTES % (AUTO) 9.8 %; NEUTROPHILS # (AUTO) 1.3 10^3/uL (1.5-6.6); NEUTROPHILS % (AUTO) 39.3 %; PLT - PLATELET COUNT 241 10^3/uL (130-450); RED BLOOD COUNT 4.47 10^6/uL (4.20-5.40); RED CELL DISTRIBUTION WIDTH 12.3 % (12.0-15.0); WHITE BLOOD COUNT 3.4 x10^3/uL (4.8-10.8)
[2020-10-03 15:46] LABS: ALBUMIN 4.3 g/dL (3.2-5.5); ALBUMIN/GLOBULIN RATIO 1.7 (1.0-2.2); ALKALINE PHOSPHATASE 53 IU/L (42-121); ALT ALANINE AMINOTRANSFERASE 17 IU/L (10-60); AST ASPARTATE AMINOTRANSFERASE 20 IU/L (10-42); BILIRUBIN,TOTAL 0.9 mg/dL (0.2-1.0); BUN - BLOOD UREA NITROGEN 18 mg/dL (6-20); CALCIUM 9.1 mg/dL (8.5-10.3); CARBON DIOXIDE - CO2 27 mmol/L (21-32); CHLORIDE 104 mmol/L (101-111); CHOL/HDL RATIO 3.5 (<4.4); CHOLESTEROL 192 mg/dL; CREATININE 0.7 mg/dL (0.4-1.0); GFR - MDRD 82 (>89); GLUCOSE 102 mg/dL (70-100); HDL CHOLESTEROL 55 mg/dL; LDL CHOLESTEROL,CALCULATED 114 mg/dL; LDL/HDL RATIO 2.1 (<4.4); POTASSIUM 4.2 mmol/L (3.5-5.0); SODIUM 140 mmol/L (135-145); TOTAL PROTEIN 6.9 g/dL (6.7-8.2); TRIGLYCERIDES 117 mg/dL; VLDL CHOLESTEROL 23 mg/dL
== END 2020-10-03 10:17 | disposition home or self-care (01) ==
LOC: DI.S 10:16
PROVIDERS: ATTEND Internal Medicine
DX: M47.812 Spondylosis without myelopathy or radiculopathy, cervical region (principal); I65.29 Occlusion and stenosis of unspecified carotid artery; I10 Essential (primary) hypertension
CPT/HCPCS: 36415; 80053; 80061; 83721; 85025

== ENCOUNTER 2020-11-17 14:17 | Outpatient (CLI) | payer MEDICARE, OTHER ==
--- NOTE | 2020-11-17 15:35 | Ultrasound Report ---
PROCEDURE: Carotid Doppler Complete INDICATIONS: PERIPHERAL VASCULAR DISEASE TECHNIQUE: Color and pulse Doppler interrogation was performed of both carotid systems, with image documentation and velocity measurements. COMPARISON: None. FINDINGS: Right side: Brachial blood pressure: 163/53 mm Hg. Common carotid artery peak systolic velocity: 66 cm/sec. Internal carotid artery peak systolic velocity: 134 cm/sec. Internal carotid artery end diastolic velocity: 28 cm/sec. External carotid artery peak systolic velocity: 111 cm/sec. ICA/CCA peak systolic ratio: 2.0 . Gonzalez scale imaging description: Mild soft plaque Percent internal carotid artery stenosis: 50-69% stenosis at the proximal internal carotid artery. . Vertebral artery: Flow direction is antegrade. Left side: Brachial blood pressure: 155/59 mm Hg. Common carotid artery peak systolic velocity: 80 cm/sec. Internal carotid artery peak systolic velocity: 116 cm/sec. Internal carotid artery end diastolic velocity: 25 cm/sec. External carotid artery peak systolic velocity: 77 cm/sec. ICA/CCA peak systolic ratio: 1.5 . Gonzalez scale imaging description: Mild calcific and soft plaque Percent internal carotid artery stenosis: Less than 50% stenosis. . Vertebral artery: Flow direction is antegrade. IMPRESSION: There is a 50-69% stenosis at the proximal right internal carotid artery and less than 50% stenosis i n the same region on the left. Vertebral arterial flow bilaterally is antegrade, normal. The estimate of stenosis included in the report of the imaging study was calculated using the NASCET method Reviewed by: Dami Lopez MD on 11/17/2020 2:34 PM AD Approved by: Dami Lopez MD on 11/17/2020 2:34 PM AD Station ID: [id number]
== END 2020-11-17 14:18 | disposition home or self-care (01) ==
LOC: DI 14:17
PROVIDERS: ATTEND Internal Medicine
DX: I65.21 Occlusion and stenosis of right carotid artery (principal)
CPT/HCPCS: 93880

== ENCOUNTER 2021-04-04 12:46 | Outpatient (CLI) | payer MEDICARE, OTHER ==
[2021-04-04 14:55] LABS: ALBUMIN 4.6 g/dL (3.2-5.5); ALBUMIN/GLOBULIN RATIO 1.6 (1.0-2.2); ALKALINE PHOSPHATASE 57 IU/L (42-121); ALT ALANINE AMINOTRANSFERASE 16 IU/L (10-60); AST ASPARTATE AMINOTRANSFERASE 22 IU/L (10-42); BILIRUBIN,TOTAL 0.8 mg/dL (0.2-1.0); BUN - BLOOD UREA NITROGEN 13 mg/dL (6-20); CALCIUM 9.4 mg/dL (8.5-10.3); CARBON DIOXIDE - CO2 28 mmol/L (21-32); CHLORIDE 103 mmol/L (101-111); CHOL/HDL RATIO 3.6 (<4.4); CHOLESTEROL 212 mg/dL; CREATININE 0.7 mg/dL (0.4-1.0); GFR - MDRD 82 (>89); GLUCOSE 102 mg/dL (70-100); HDL CHOLESTEROL 59 mg/dL; LDL CHOLESTEROL,CALCULATED 129 mg/dL; LDL/HDL RATIO 2.2 (<4.4); POTASSIUM 4.4 mmol/L (3.5-5.0); SODIUM 141 mmol/L (135-145); TOTAL PROTEIN 7.4 g/dL (6.7-8.2); TRIGLYCERIDES 122 mg/dL; VLDL CHOLESTEROL 24 mg/dL
[2021-04-04 15:04] LABS: BASOPHILS % (AUTO) 0.9 %; EOSINOPHILS # (AUTO) 0.1 10^3/uL (0.0-0.7); EOSINOPHILS % (AUTO) 2.1 %; HCT - HEMATOCRIT 41.1 % (37.0-47.0); HGB - HEMOGLOBIN 12.9 g/dL (12.0-16.0); LYMPHOCYTES # (AUTO) 1.5 10^3/uL (1.5-3.5); LYMPHOCYTES % (AUTO) 34.8 %; MEAN CORPUSCULAR HGB CONC 31.4 g/dL (32.0-36.0); MEAN CORPUSCULAR VOLUME 92.4 fL (81.0-99.0); MEAN PLATELET VOLUME 10.1 fL (7.9-10.8); MONOCYTES # (AUTO) 0.4 10^3/uL (0.0-1.0); MONOCYTES % (AUTO) 8.9 %; NEUTROPHILS # (AUTO) 2.3 10^3/uL (1.5-6.6); NEUTROPHILS % (AUTO) 53.1 %; PLT - PLATELET COUNT 265 10^3/uL (130-450); RED BLOOD COUNT 4.45 10^6/uL (4.20-5.40); RED CELL DISTRIBUTION WIDTH 12.3 % (12.0-15.0); WHITE BLOOD COUNT 4.4 x10^3/uL (4.8-10.8)
== END 2021-04-04 12:47 | disposition home or self-care (01) ==
LOC: LAB.S 12:46
PROVIDERS: ATTEND Internal Medicine
DX: I10 Essential (primary) hypertension (principal); I73.9 Peripheral vascular disease, unspecified
CPT/HCPCS: 36415; 80053; 80061; 83721; 85025

== ENCOUNTER 2021-05-15 14:31 | Outpatient (CLI) | payer MEDICARE, OTHER ==
--- NOTE | 2021-05-15 16:27 | XRAY Report ---
PROCEDURE: Thoracic Spine 2 View INDICATIONS: CERVICALGIA,THORACIC BACK PAIN TECHNIQUE: 3 views of the thoracic spine were acquired. COMPARISON: None. FINDINGS: Bones: No fractures or dislocations. No suspicious bony lesions. 12 pairs of ribs are noted, and a ppear intact where visualized. Multilevel degenerative disc space narrowing is present. Soft tissues: No paravertebral stripe thickening. IMPRESSION: Multilevel degenerative disc space narrowing. Reviewed by: Sheryl Ridley MD on 05/15/2021 4:26 PM PST Approved by: Sheryl Ridley MD on 05/15/2021 4:26 PM PST Station ID: [id number]
--- NOTE | 2021-05-15 16:30 | XRAY Report ---
PROCEDURE: Cervical Spine 2 View INDICATIONS: CERVICALGIA TECHNIQUE: 2 view(s) of the cervical spine were acquired. COMPARISON: X-ray cervical spine 10/03/2020 FINDINGS: Bones: No fractures or dislocations to the C7-T1 level. The lateral masses of C1 appear intact on t he odontoid view. No suspicious bony lesions. There is moderate to severe disc space narrowing at C 3-4, C4-5, C5-6 and C6-7. There is grade 1 retrolisthesis of C4 on C5 measuring 2 mm. Multilevel unco vertebral hypertrophy are present. Soft tissues: No prevertebral soft tissue swelling. IMPRESSION: Multilevel degenerative changes as above. Reviewed by: Sheryl Ridley MD on 05/15/2021 4:29 PM PST Approved by: Sheryl Ridley MD on 05/15/2021 4:29 PM PST Station ID: [id number]
--- NOTE | 2021-05-15 17:10 | XRAY Report ---
PROCEDURE: Shoulder 3 View RT INDICATIONS: CERVICALGIA,THORACIC BACK PAIN,PAIN IN RIGHT SHOUL TECHNIQUE: 3 views of the shoulder were acquired. COMPARISON: None. FINDINGS: Bones: No acute fractures or dislocations. No suspicious bony lesions. Visualized ribs appear inta ct. Moderate acromioclavicular joint osteoarthrosis. Soft tissues: No suspicious soft tissue calcifications. IMPRESSION: No acute osseous abnormality. Moderate acromioclavicular osteoarthrosis. If symptoms per sist or there is continued clinical concern, further evaluation with MRI or CT may be helpful. Reviewed by: Elías Varma MD on 05/15/2021 5:09 PM PST Approved by: Elías Varma MD on 05/15/2021 5:09 PM PST Station ID: [id number]
== END 2021-05-15 14:32 | disposition home or self-care (01) ==
LOC: DI.S 14:31
PROVIDERS: ATTEND Internal Medicine
DX: M19.011 Primary osteoarthritis, right shoulder (principal); M50.31 Other cervical disc degeneration, high cervical region; M43.12 Spondylolisthesis, cervical region; M51.34 Other intervertebral disc degeneration, thoracic region

== ENCOUNTER 2021-10-27 10:54 | Outpatient (CLI) | payer MEDICARE, OTHER ==
[2021-10-27 11:33] VITALS: BP 124/78
--- NOTE | 2021-10-27 11:33 | SLEEP CARE CONSULTATION ---
Information from patient questionnaire entered by Jaun Barraza MA. I have reviewed and concur with the information entered by Juan Barraza MA. This document represents the service I personally performed and the decisions made by me, Galo Krishnamurthy MD, [facility]. History of Present Illness Service Date and Time: 10/27/2021 1054 Previous diagnosis: Severe, Obstructive Sleep Apnea-Hypopnea Syndrome AHI: 38.8 (in 2010) Reason for follow up: annual (LAST SEEN 09/24/2021, CIPRIANO, ) Equipment type: CPAP Equipment obtained from: [employer] (getting supplies as needed, easy to work with) Mask style: Nasal Prior sleep studies: Yes Year and Where: [address] [place] [address] in [place], [place] HPI additional information: HPI: Ms. Acuna returned today for annual follow up of nasal CPAP therapy. She was diagnosed to have severe obstructive sleep apnea-hypopnea syndrome. The patient gets her supplies from [employer]. She wears a Respironics DreamWear nasal cushion mask. She used the ResMed AirSense 11 nightly and all through the night until 3 weeks ago when she went to [place], [place]. She said she slept well without it and would like to not use it. The compliance report shows usage in 157 nights out of the past 180 nights, averaging 8.1 hours a night. She complained of no particular problem with the device such as soreness on the face, dry nose, epistaxis, nasal congestion or headache. She thinks that the pressure of 7 - 9 cmH2O is comfortable. On the CPAP therapy she notices improvement in her sleep quality, and that she wakes up feeling fresher in the morning and more awake/alert during the day. The average residual AHI is 1.2; and average air leak is 4.2 L/minute. Sleep Study - Results Prior sleep studies: Yes Year and Where: 2010 [facility] in [place], [place] CPAP Compliance Data - Data Reviewed with Patient Average duration of nightly device use: 7 HOURS 51 MINUTES Compliance rate %: 100 Current pressure setting (cmH2O): 7-9 Humidity settin Heated hose settin Average residual AHI: 2.9 Average large leak: 21 MINUTES 49 SECONDS Subjective Missed days of use due to: reports: travel Patient concerns: reports: mask discomfort, mask leak noise, dry mouth, nose, throat Current pressure setting perceived as: comfortable Initial [place] Sleepiness Scale score: 3 (in 2016) Current [place] Sleepiness Scale score: 4 (10/2021) Allergies and Home Medications Drug allergies reviewed: Yes Home medication list reviewed: Yes Allergy and home medication list: Allergies Penicillins Allergy (Verified 08/14/18 17:41) Unknown Review of Systems Review of systems same as previous: Yes Physical Exam Vital signs obtained and entered by: CICI SAGASTUME Blood Pressure: 124/78 (PULSE 70, RESP 16, RIGHT) Cuff size: wrist Heart Rate: 60 O2 Saturation: 97 Height: 5 ft 5 in Weight: 277 lb Body Mass Index: 46.0 BMI Classification: Morbidly Obese Impression and Plan IMPRESSION: 1. Obstructive Sleep Apnea-Hypopnea Syndrome, severe (AHI was 38.8 at [facility] on 06/14/2010), with the patient currently not using her CPAP because she sleeps just as well without her machine. The patient never had a sleep study here. I will order an in-laboratory polysomnography to reassess her sleep-disordered breathing. PLAN: 1. She may stop using her CPAP for now. 2. Schedule an in-laboratory polysomnography. 3. Return for follow up after the sleep study. Follow up with Sleep Care in: 1-2 months Visit Type: In Office Time Spent with Patient (minutes): 15 Provider Statement: I spent 100% of the Face to Face Visit with the patient with greater than 50% spent counseling the patient and coordination of care.
== END 2021-10-27 10:55 | disposition home or self-care (01) ==
LOC: SC 10:54
PROVIDERS: ATTEND Internal Medicine Pulmonary Disease
DX: G47.33 Obstructive sleep apnea (adult) (pediatric) (principal); E66.01 Morbid (severe) obesity due to excess calories; Z68.42 Body mass index [BMI] 45.0-49.9, adult
CPT/HCPCS: 99212; G0463

== ENCOUNTER 2021-11-12 20:19 | Outpatient (CLI) | payer MEDICARE, OTHER | END 2021-11-12 20:20 | disposition home or self-care (01) | LOC: SC 20:19 | PROVIDERS: ATTEND Nurse Practitioner Family | DX: G47.33 Obstructive sleep apnea (adult) (pediatric) (principal); G47.61 Periodic limb movement disorder | CPT/HCPCS: 95810 ==

== ENCOUNTER 2022-03-01 15:18 | Outpatient (CLI) | payer MEDICARE, OTHER | END 2022-03-01 15:19 | disposition short-term general hospital (02) | LOC: EMS 15:18 | DX: R07.9 Chest pain, unspecified (principal); R42 Dizziness and giddiness; R00.1 Bradycardia, unspecified | CPT/HCPCS: A0425; A0427 ==

== ENCOUNTER 2022-04-14 11:44 | Outpatient (CLI) | payer MEDICARE, OTHER ==
[2022-04-14 14:13] LABS: BASOPHILS # (AUTO) 0.1 10^3/uL (0.0-0.1); BASOPHILS % (AUTO) 1.1 %; EOSINOPHILS # (AUTO) 0.1 10^3/uL (0.0-0.7); EOSINOPHILS % (AUTO) 2.7 %; HCT - HEMATOCRIT 38.8 % (37.0-47.0); HGB - HEMOGLOBIN 11.7 g/dL (12.0-16.0); LYMPHOCYTES # (AUTO) 1.7 10^3/uL (1.5-3.5); LYMPHOCYTES % (AUTO) 38.1 %; MEAN CORPUSCULAR HEMOGLOBIN 26.8 pg (27.0-31.0); MEAN CORPUSCULAR HGB CONC 30.2 g/dL (32.0-36.0); MONOCYTES # (AUTO) 0.4 10^3/uL (0.0-1.0); MONOCYTES % (AUTO) 8.4 %; NEUTROPHILS # (AUTO) 2.2 10^3/uL (1.5-6.6); NEUTROPHILS % (AUTO) 49.5 %; PLT - PLATELET COUNT 257 10^3/uL (130-450); RED BLOOD COUNT 4.36 10^6/uL (4.20-5.40); RED CELL DISTRIBUTION WIDTH 12.7 % (12.0-15.0); WHITE BLOOD COUNT 4.4 x10^3/uL (4.8-10.8)
[2022-04-14 14:39] LABS: ALBUMIN 4.1 g/dL (3.2-5.5); ALBUMIN/GLOBULIN RATIO 1.5 (1.0-2.2); ALKALINE PHOSPHATASE 48 IU/L (42-121); ALT ALANINE AMINOTRANSFERASE 15 IU/L (10-60); AST ASPARTATE AMINOTRANSFERASE 23 IU/L (10-42); BILIRUBIN,TOTAL 0.6 mg/dL (0.2-1.0); BUN - BLOOD UREA NITROGEN 16 mg/dL (6-20); CALCIUM 8.9 mg/dL (8.5-10.3); CARBON DIOXIDE - CO2 27 mmol/L (21-32); CHLORIDE 101 mmol/L (101-111); CHOLESTEROL 188 mg/dL; CREATININE 0.8 mg/dL (0.4-1.0); GFR - MDRD 70 (>89); GLUCOSE 103 mg/dL (70-100); HDL CHOLESTEROL 62 mg/dL; LDL CHOLESTEROL,CALCULATED 107 mg/dL; LDL/HDL RATIO 1.7 (<4.4); POTASSIUM 4.2 mmol/L (3.5-5.0); SODIUM 136 mmol/L (135-145); TOTAL PROTEIN 6.9 g/dL (6.7-8.2); TRIGLYCERIDES 95 mg/dL; VLDL CHOLESTEROL 19 mg/dL
[2022-04-14 14:52] LABS: THYROID STIMULATING HORMONE 0.43 uIU/mL (0.34-5.60)
[2022-04-14 16:26] LABS: ESTIMATED AVERAGE GLUCOSE 117 mg/dL (70-100); HEMOGLOBIN A1c% 5.7 % (4.27-6.07)
== END 2022-04-14 11:45 | disposition home or self-care (01) ==
LOC: LAB.S 11:44
PROVIDERS: ATTEND Registered Nurse
DX: I10 Essential (primary) hypertension (principal); Z79.899 Other long term (current) drug therapy; R73.01 Impaired fasting glucose; E78.5 Hyperlipidemia, unspecified
CPT/HCPCS: 36415; 80053; 80061; 83036; 83721; 84443; 85025

== ENCOUNTER 2023-02-25 08:00 | Outpatient (CLI) | payer MEDICARE, OTHER ==
--- NOTE | 2023-02-25 18:48 | XRAY Report ---
PROCEDURE: Shoulder 3 View RT INDICATIONS: RIGHT SHOULDER CONTUSION TECHNIQUE: 3 views of the shoulder were acquired. COMPARISON: 05/15/2021 FINDINGS: Bones: No fractures or dislocations. No suspicious bony lesions. Visualized ribs appear intact. Degenerative changes are seen, including involving the acromioclavicular joint, mild subacromial spur ring. Soft tissues: No suspicious soft tissue calcifications. The visualized lungs are within normal limi ts. IMPRESSION: Degenerative changes are seen, without mary fracture seen by these plain films. No dislocation. If it would be helpful for clinical management decision making, please consider a dedicated, schedule d shoulder MRI for further evaluation (assuming that there is no contraindication). Reviewed by: Socrates Nichols MD on 02/25/2023 5:47 PM AD Approved by: Socrates Nichols MD on 02/25/2023 5:47 PM AD Station ID: [id number]
== END 2023-02-25 23:59 | disposition home or self-care (01) ==
LOC: DI.S 08:00
PROVIDERS: ATTEND Physician Assistant Medical
DX: S40.011A Contusion of right shoulder, initial encounter (principal); M19.011 Primary osteoarthritis, right shoulder

== ENCOUNTER 2023-07-12 11:22 | Outpatient (CLI) | payer MEDICARE, OTHER ==
[2023-07-12 15:23] LABS: BASOPHILS # (AUTO) 0.1 10^3/uL (0.0-0.1); EOSINOPHILS # (AUTO) 0.1 10^3/uL (0.0-0.7); EOSINOPHILS % (AUTO) 2.6 %; HCT - HEMATOCRIT 38.3 % (37.0-47.0); HGB - HEMOGLOBIN 11.2 g/dL (12.0-16.0); LYMPHOCYTES # (AUTO) 1.6 10^3/uL (1.5-3.5); LYMPHOCYTES % (AUTO) 45.3 %; MEAN CORPUSCULAR HEMOGLOBIN 24.8 pg (27.0-31.0); MEAN CORPUSCULAR HGB CONC 29.2 g/dL (32.0-36.0); MEAN CORPUSCULAR VOLUME 84.7 fL (81.0-99.0); MEAN PLATELET VOLUME 10.1 fL (7.9-10.8); MONOCYTES # (AUTO) 0.4 10^3/uL (0.0-1.0); MONOCYTES % (AUTO) 10.3 %; NEUTROPHILS # (AUTO) 1.4 10^3/uL (1.5-6.6); NEUTROPHILS % (AUTO) 39.5 %; PLT - PLATELET COUNT 257 10^3/uL (130-450); RED BLOOD COUNT 4.52 10^6/uL (4.20-5.40); RED CELL DISTRIBUTION WIDTH 13.8 % (12.0-15.0); WHITE BLOOD COUNT 3.5 x10^3/uL (4.8-10.8)
[2023-07-12 16:39] LABS: ALBUMIN 4.1 g/dL (3.2-5.5); ALBUMIN/GLOBULIN RATIO 1.7 (1.0-2.2); ALKALINE PHOSPHATASE 48 IU/L (42-121); ALT ALANINE AMINOTRANSFERASE 10 IU/L (10-60); AST ASPARTATE AMINOTRANSFERASE 17 IU/L (10-42); BILIRUBIN,TOTAL 0.5 mg/dL (0.2-1.0); BUN - BLOOD UREA NITROGEN 12 mg/dL (6-20); CARBON DIOXIDE - CO2 28 mmol/L (21-32); CHLORIDE 105 mmol/L (101-111); CHOL/HDL RATIO 2.6 (<4.4); CHOLESTEROL 168 mg/dL; CREATININE 0.8 mg/dL (0.6-1.3); GFR - MDRD 69 (>89); GLUCOSE 88 mg/dL (74-104); HDL CHOLESTEROL 64 mg/dL; LDL CHOLESTEROL,CALCULATED 86 mg/dL; LDL/HDL RATIO 1.3 (<4.4); POTASSIUM 4.3 mmol/L (3.5-4.5); SODIUM 138 mmol/L (135-145); TOTAL PROTEIN 6.5 g/dL (6.4-8.9); TRIGLYCERIDES 88 mg/dL (48-352); VLDL CHOLESTEROL 18 mg/dL
== END 2023-07-12 11:23 | disposition home or self-care (01) ==
LOC: LAB.S 11:22
PROVIDERS: ATTEND Registered Nurse
DX: I10 Essential (primary) hypertension (principal); E78.5 Hyperlipidemia, unspecified; Z79.899 Other long term (current) drug therapy; Z13.9 Encounter for screening, unspecified
CPT/HCPCS: 36415; 80053; 80061; 83721; 84443; 85025

== ENCOUNTER 2023-09-17 12:01 | Outpatient (CLI) | payer MEDICARE, OTHER ==
--- NOTE | 2023-09-17 12:50 | DEXA Report ---
PROCEDURE: Dexa Spine and/or Hip INDICATIONS: POST MENOPAUSAL TECHNIQUE: Dual energy x-ray absorptiometry (DXA) was performed on a [employer] System. Regions measur ed are the AP Spine, femoral neck, and if needed forearm. COMPARISON: 08/09/2018 FINDINGS: Lumbar Spine: Bone Mineral Density: 0.86 g/cm/cm,T score: -2.4. Since the most recent prior study, there has been a statistically significant increase in bone mineral density by 5.2 percent. Left Femoral Neck: Bone Mineral Density: 0.725 g/cm/cm, T score: -2.3. Left Hip: Bone Mineral Density: 0.743 g/cm/cm,T score: -2.1. There has been no statistically significant change in bone mineral density since the prior study. (T score greater or equal to -1.0: NORMAL) (T score from -1.1 to -2.4: OSTEOPENIA) (T score less than or equal to -2.5 to: OSTEOPOROSIS) Impression: By WHO criteria, this patient has low bone density (osteopenia). Interval statistical increase in bone mineral density of the lumbar spine. No statistical interval ch vasquez in bone mineral density of the hip. Patients with diagnosis of osteoporosis or osteopenia should have regular bone mineral density assess ment. For those eligible for Medicare, routine testing is allowed once every 2 years. Testing frequ ency can be increased for patients who have rapidly progressing disease or for those who are receivin g medical therapy to restore bone mass. Reviewed by: Stone Hutchison MD on 09/17/2023 12:48 PM PDT Approved by: Stone Hutchison MD on 09/17/2023 12:48 PM PDT Station ID: [id number]
== END 2023-09-17 12:02 | disposition home or self-care (01) ==
LOC: DI 12:01
PROVIDERS: ATTEND Registered Nurse
DX: M85.89 Other specified disorders of bone density and structure, multiple sites (principal); Z78.0 Asymptomatic menopausal state

== ENCOUNTER 2023-10-28 16:16 | Outpatient (CLI) | payer MEDICARE, OTHER ==
--- NOTE | 2023-10-29 14:52 | XRAY Report ---
PROCEDURE: Tib/Fib LT INDICATIONS: LEFT LEG PAIN TECHNIQUE: 2 views of the tibia and fibula were acquired. COMPARISON: X-ray foot 10/28/2023 FINDINGS: Bones: No fractures or dislocations. No suspicious bony lesions. Soft tissues: No suspicious soft tissue calcifications or masses. IMPRESSION: No visualized acute fracture or dislocation. However, occult injury cannot be excluded. Recommend bradley rt interval imaging follow-up in 7-10 days as clinically indicated for additional evaluation. If concern exists for soft tissue pathology, focal ultrasound or MRI is recommended. Reviewed by: Sheryl Ridley MD on 10/29/2023 2:50 PM PDT Approved by: Sheryl Ridley MD on 10/29/2023 2:50 PM PDT Station ID: [id number]
--- NOTE | 2023-10-29 14:52 | XRAY Report ---
PROCEDURE: Foot 1-2V LT INDICATIONS: ANKLE JOOINT PAIN,LEFT TECHNIQUE: 3 views of the foot were acquired. COMPARISON: X-ray tib-fib 10/28/2023 FINDINGS: Bones: No fractures or dislocations. No suspicious bony lesions. Calcaneal spur is present. Soft tissues: No tibiotalar joint effusion. Achilles tendon appears normal. IMPRESSION: No visualized acute fracture or dislocation. However, occult injury cannot be excluded. Recommend bradley rt interval imaging follow-up in 7-10 days as clinically indicated for additional evaluation.. Reviewed by: Sheryl Ridley MD on 10/29/2023 2:51 PM PDT Approved by: Sheryl Ridley MD on 10/29/2023 2:51 PM PDT Station ID: [id number]
== END 2023-10-28 16:17 | disposition home or self-care (01) ==
LOC: DI.S 16:16
PROVIDERS: ATTEND Registered Nurse
DX: M25.572 Pain in left ankle and joints of left foot (principal); M79.605 Pain in left leg

== ENCOUNTER 2023-11-16 14:25 | Outpatient (CLI) | payer MEDICARE, OTHER ==
--- NOTE | 2023-11-16 19:27 | XRAY Report ---
PROCEDURE: Cervical Spine w/Flex/Ext 6+V INDICATIONS: CERVICALGIA TECHNIQUE: 7 views of the cervical spine were acquired. COMPARISON: X-ray cervical spine May 15, 2021 FINDINGS: Bones: No fractures or dislocations to the C7-T1 level. No suspicious bony lesions. There is trace retrolisthesis of C4 on C5, C5 on C6. Multilevel degenerative disc space narrowing is present, moder ate to severe at C4-5, C5-6 and C6-7. Multilevel uncovertebral arthropathy is present. There is left foraminal narrowing at C3-4 and C5-6, and most prominent on the right at C5-6 and C6-7. There is mild decreased range of motion between flexion and extension, with preserved normal bony alignment. Soft tissues: Prevertebral soft tissues are normal in thickness. IMPRESSION: Multilevel degenerative changes most severe at C5-6 and C6-7. Overall appearance demonstrates minimal progression compared to prior exam. Reviewed by: Sheryl Ridley MD on 11/16/2023 7:25 PM PDT Approved by: Sheryl Ridley MD on 11/16/2023 7:25 PM PDT Station ID: [id number]
--- NOTE | 2023-11-16 19:27 | XRAY Report ---
PROCEDURE: Thoracic Spine 2V INDICATIONS: THORACIC BACK PAIN TECHNIQUE: 2 views of the thoracic spine were acquired. COMPARISON: X-ray thoracic spine May 15, 2021 FINDINGS: Bones: No fractures or dislocations. No suspicious bony lesions. 12 pairs of ribs are noted, and a ppear intact where visualized. Moderate scattered areas of degenerative disc space narrowing with sm all anterior osteophytes minimally progressive. Soft tissues: No paravertebral stripe thickening. IMPRESSION: Minimal progression of multilevel disc space narrowing and anterior osteophytes. Reviewed by: Sheryl Ridley MD on 11/16/2023 7:26 PM PDT Approved by: Sheryl Ridley MD on 11/16/2023 7:26 PM PDT Station ID: [id number]
--- NOTE | 2023-11-16 19:28 | XRAY Report ---
PROCEDURE: Lumbar Spine 2-3V INDICATIONS: LOW BACK PAIN TECHNIQUE: 3 views of the lumbar spine were acquired. COMPARISON: None. FINDINGS: Surgical change: None. Bones: 5 [id number] vertebrae are present. There is trace retrolisthesis of L1 on L2, L2 on L3, L3 on L4. Multilevel moderate to severe disc space narrowing is present most severe at L5-S1. Multil evel moderate to severe foraminal narrowing is present most prominently from L2-3 through L5-S1. Ther e is leftward scoliotic curvature with apex at L3. No vertebral body compression fractures. No suspi cious bony lesions. Soft tissues: Overlying bowel gas pattern is normal. No suspicious soft tissue calcifications. IMPRESSION: Multilevel degenerative changes including scoliotic curvature. Disc and foraminal narrowing are most severe at L5-S1. Reviewed by: Sheryl Ridley MD on 11/16/2023 7:27 PM PDT Approved by: Sheryl Ridley MD on 11/16/2023 7:27 PM PDT Station ID: [id number]
--- NOTE | 2023-11-16 19:29 | XRAY Report ---
PROCEDURE: Tib/Fib LT INDICATIONS: LEG PAIN,LEFT TECHNIQUE: 2 views of the tibia and fibula were acquired. COMPARISON: X-ray tibia-fibula 10/28/2023. FINDINGS: Bones: No fractures or dislocations. No suspicious bony lesions. Degenerative changes are present at the knee. Mild pes planus deformity is present at the foot. Calcaneal spur is present. Soft tissues: No suspicious soft tissue calcifications or masses. IMPRESSION: No visualized fracture or acute osseous abnormality. If concern persists, CT or MRI is recommended. Reviewed by: Sheryl Ridley MD on 11/16/2023 7:28 PM PDT Approved by: Sheryl Ridley MD on 11/16/2023 7:28 PM PDT Station ID: [id number]
== END 2023-11-16 14:26 | disposition home or self-care (01) ==
LOC: DI.S 14:25
PROVIDERS: ATTEND Registered Nurse
DX: M79.605 Pain in left leg (principal); M47.816 Spondylosis without myelopathy or radiculopathy, lumbar region; M51.37 Other intervertebral disc degeneration, lumbosacral region; M48.07 Spinal stenosis, lumbosacral region; M47.814 Spondylosis without myelopathy or radiculopathy, thoracic region; M25.78 Osteophyte, vertebrae; M47.812 Spondylosis without myelopathy or radiculopathy, cervical region

== ENCOUNTER 2024-01-19 14:30 | Emergency (ER) | payer MEDICARE, OTHER ==
[2024-01-19] MEDS: KETOROLAC 15 MG/ML VIAL IVP STA (15:35)
[2024-01-19 15:37] LABS: BASOPHILS # (AUTO) 0.1 10^3/uL (0.0-0.1); BASOPHILS % (AUTO) 0.8 %; EOSINOPHILS # (AUTO) 0.1 10^3/uL (0.0-0.7); EOSINOPHILS % (AUTO) 1.3 %; HGB - HEMOGLOBIN 13.9 g/dL (12.0-16.0); LYMPHOCYTES # (AUTO) 1.9 10^3/uL (1.5-3.5); LYMPHOCYTES % (AUTO) 27.2 %; MEAN CORPUSCULAR HEMOGLOBIN 29.2 pg (27.0-31.0); MEAN CORPUSCULAR HGB CONC 32.3 g/dL (32.0-36.0); MEAN CORPUSCULAR VOLUME 90.3 fL (81.0-99.0); MONOCYTES # (AUTO) 0.6 10^3/uL (0.0-1.0); MONOCYTES % (AUTO) 7.7 %; NEUTROPHILS # (AUTO) 4.4 10^3/uL (1.5-6.6); NEUTROPHILS % (AUTO) 62.6 %; PLT - PLATELET COUNT 238 10^3/uL (130-450); RED BLOOD COUNT 4.76 10^6/uL (4.20-5.40); RED CELL DISTRIBUTION WIDTH 13.5 % (12.0-15.0); WHITE BLOOD COUNT 7.1 x10^3/uL (4.8-10.8)
--- NOTE | 2024-01-19 15:51 | ED Physician Documentation ---
PD HPI ABD PAIN - Stated complaint Stated Complaint: ABD ULTRASOUND - Chief complaint Chief Complaint: Abd Pain - History obtained from History obtained from: Patient, Family - History of Present Illness Pain level max: 7 Pain level now: 4 Quality: Pain Location: RUQ Worsened by: Palpation Associated symptoms: No: Fever, Nausea, Vomiting, Hematemesis, Diarrhea, Constipation, Melena, Hematochezia, Dysuria, Hematuria Recently seen: Not recently seen - Additional information Additional information: Patient is a 78-year-old female who presents to the emergency department stating that she has right-sided abdominal/flank pain. Ongoing for the past 8 days. She states she was seen at the walk-in clinic, diagnosed with shingles, started on "a medication" but does not know which medication. She states she did not take it as she does not like to take medication. She is continuing to experience pain so at back to the walk-in clinic and was sent here for evaluation. No fevers. No chills. No nausea or vomiting. No diarrhea or constipation. No urinary symptoms. Worse with palpation and movement. She states her skin is very sensitive. Nothing makes it better. Review of Systems Constitutional: denies: Fever, Chills Respiratory: denies: Cough GI: denies: Vomiting, Diarrhea Skin: denies: Rash Musculoskeletal: denies: Neck pain, Back pain Neurologic: denies: Headache PD PAST MEDICAL HISTORY - Past Medical History Past Medical History: Yes Cardiovascular: Hypertension, High cholesterol Respiratory: Asthma Endocrine/Autoimmune: None GI: None WHEEL BUFFER: None : None HEENT: None Psych: None Musculoskeletal: None Derm: None - Past Surgical History Past Surgical History: Yes /WHEEL BUFFER: Hysterectomy - Present Medications Home Medications: Ambulatory Orders Medication Instructions Recorded Confirmed Aspirin [Aspirin EC] 81 mg PO BID 09/16/16 01/19/24 Losartan [Cozaar] 100 mg PO DAILY 09/16/16 01/19/24 Hydrocodone/Acetaminophen 1 - 2 each PO Q6H PRN #14 tablet 08/14/18 01/19/24 [Hydrocodon-Acetaminophen 5-325] Acetaminophen/Cod 300/30 [Tylenol 1 each PO Q4-6H PRN #14 tablet 01/19/24 #3] Valacyclovir HCl [Valtrex] 1,000 mg PO TID #21 tablet 01/19/24 - Allergies Allergies/Adverse Reactions: Allergies Allergy/AdvReac Type Severity Reaction Status Date / Time Penicillins Allergy Unknown Verified 01/19/24 14:43 acetaminophen [From Vicodin] AdvReac Nausea Verified 01/19/24 14:43 hydrocodone [From Vicodin] AdvReac Nausea Verified 01/19/24 14:43 - Social History Does the pt smoke?: No Smoking Status: Never smoker Does the pt drink ETOH?: Yes Does the pt have substance abuse?: No - Immunizations Immunizations are current?: Yes - POLST Patient has POLST: No PD ED PE NORMAL - Vitals Vital signs reviewed: Yes - General General: Alert and oriented X 3, No acute distress - HEENT HEENT: Moist mucous membranes - Neck Neck: Supple, no meningeal sign - Cardiac Cardiac: RRR - Respiratory Respiratory: No respiratory distress, Clear bilaterally - Abdomen Abdomen: Normal bowel sounds, Soft, Non distended, Other (Tender to palpation right upper quadrant, skin is very sensitive to the touch, even light touch around the T11 dermatome. No rash.) - Derm Derm: Warm and dry - Extremities Extremities: No edema - Neuro Neuro: Alert and oriented X 3 - Psych Psych: Normal mood, Normal affect Results - Vitals Vitals: Vital Signs - 24 hr 01/19/24 01/19/24 01/19/24 14:32 16:43 17:34 Temperature 37.0 C 36.8 C Heart Rate 66 64 68 Respiratory 16 16 15 Rate Blood Pressure 148/52 H 172/68 H 167/67 H O2 Saturation 99 99 100 Oxygen O2 Source Room air - Labs Labs: Laboratory Tests 01/19/24 01/19/24 01/19/24 15:27 15:41 16:44 WBC 7.1 RBC 4.76 Hgb 13.9 Hct 43.0 MCV 90.3 MCH 29.2 MCHC 32.3 RDW 13.5 Plt Count 238 MPV 9.0 Neut # (Auto) 4.4 Lymph # (Auto) 1.9 [place] # (Auto) 0.6 Eos # (Auto) 0.1 Baso # (Auto) 0.1 Absolute Nucleated RBC 0.00 Nucleated RBC % 0.0 Sodium 138 Potassium 3.9 Chloride 101 Carbon Dioxide 28 Anion Gap 9.0 BUN 16 Creatinine 0.9 Estimated GFR (MDRD) 61 L Glucose 93 Calcium 9.5 Total Bilirubin 0.7 AST 16 ALT 10 Alkaline Phosphatase 48 Total Protein 6.2 L Albumin 4.2 Globulin 2.0 L Albumin/Globulin Ratio 2.1 Lipase 14 Urine Color YELLOW Urine Clarity CLEAR Urine pH 6.0 Ur Specific [place] 1.015 Urine Protein NEGATIVE Urine Glucose (UA) NEGATIVE Urine Ketones 40 H Urine Occult Blood NEGATIVE Urine Nitrite NEGATIVE Urine Bilirubin NEGATIVE Urine Urobilinogen 0.2 (NORMAL) Ur Leukocyte Esterase NEGATIVE Ur Microscopic Review NOT INDICATED Urine Culture Comments NOT INDICATED - Rads (name of study) CT abdomen pelvis Relevant Findings:: Final report received, See rad report Right upper quadrant ultrasound Relevant Findings:: Final report received, See rad report PD Medical Decision Making - ED course Complexity details: reviewed results, re-evaluated patient, considered differential, d/w patient ED course: No acute findings on laboratory testing, CT abdomen pelvis or right upper quadrant ultrasound. There is an adrenal likely adenoma on CT scan, can follow- up with her doctor for this. Also has thickening of her stomach and distal esophagus, likely Gastritis. Her symptoms are consistent with shingles. She does not have a rash, likely zoster sine herpete. We will place on valacyclovir and pain medication. Will have her follow-up with her doctor for further care. Patient counseled regarding signs and symptoms for which I believe and urgent re-evaluation would be necessary. Patient with good understanding of and agreement to plan and is comfortable going home at this time This document was made in part using voice recognition software. While efforts are made to proofread this document, sound alike and grammatical errors may occur. Departure - Departure Disposition: 01 Home, Self Care Clinical Impression: Zoster sine herpete Condition: Good Instructions: ED Shingles Follow-Up: Macey Ospina ARNP [Primary Care Provider] - Within 1 week Prescriptions: Acetaminophen/Cod 300/30 [Tylenol #3] 1 each PO Q4-6H PRN #14 tablet PRN Reason: pain Valacyclovir HCl [Valtrex] 1,000 mg PO TID #21 tablet Comments: Your prescriptions were sent to [facility] in [place]. Your CT scan and laboratory testing did not show any acute abnormalities. Your ultrasound does not show any acute abnormalities either. You do have a left adrenal nodule that can be followed up with your doctor. You also have some wall thickening in your esophagus and stomach that could be consistent with gastritis or reflux, if indicated your doctor can order an endoscopy for you for this. I am prescribing a short course of narcotic pain medication for you. These are potentially dangerous and addictive medications that should be used carefully. These medications may constipate you. Take an wxix-mqq-pwdyeyq stool softener (docusate) twice daily with plenty of water while taking these medications. If you go 24 hours without a bowel movement, take [id number]-[id number] miralax, per package instructions. Do not drink or drive while taking these medications. If you received narcotic or sedating medications while in the emergency department, do not drive for 24 hours. Store this medication in a safe, secure place and out of reach of children. It is a violation of federal law to give or sell this medication to another person or to use in a manner other than prescribed. The ED will not refill narcotic prescriptions, including prescriptions lost or stolen. To dispose of unwanted medications: 1. [facility] [address] in [place] has a medication drop box. They accept prescription medications (in pill form) Wednesday through Wednesday 9:00 a.m. to 5:00 p.m. 2. [facility] [employer] [facility] accepts prescription medications (in pill form only) for disposal year round. Call for more information. 3. Contact the [facility] for the next [facility] sponsored prescription drug collection event. , [phone], or [phone]; EXAM: [id number] CT/ABPEW (14311) PROCEDURE: Abdomen/Pelvis W INDICATIONS: R sided abd pain CONTRAST: Omni 300 100ml TECHNIQUE: After the administration of intravenous contrast, a CT scan of the abdomen and pelvis was performed. Images were recorded and evaluated at appropriate window settings. Reformats: coronal and sagittal. For radiation dose reduction, the following was used: automated exposure control, adjustment of mA and/or kV according to patient size. COMPARISON: None FINDINGS: Image quality: Diagnostic Lower chest: Small Bochdalek's hernias, containing fat. Small hiatal hernia. Normal heart size where visualized Liver: There is suspected liver cysts. Subcentimeter lesions are too small characterize, usually also cysts or hemangiomas. Gallbladder and biliary system: Unremarkable, nondilated Pancreas: No ductal dilation Spleen: Nonenlarged Adrenals: There is bilateral thickening. Possible focal nodule on the left measures about 1.2 cm. Kidneys: Subcentimeter lesions are too small characterize, usually cysts. No solid renal mass. No hydronephrosis. Vessels and lymph nodes: The main portal vein is patent. No abdominal aortic aneurysm. No pathologic lymph nodes by size criteria. Bowel and peritoneum: There is nonspecific possible wall thickening of the stomach not well assessed due to underdistention. No acute small bowel obstruction. Colonic diverticula are present, without imaging signs of acute inflammation. Nondilated appendix. However, there is mild surrounding fat stranding in the right inferior paracolic gutter. Body wall: Small fat-containing umbilical hernia Pelvis: Bladder is unremarkable and underdistended. Uterus is absent. Bones: Degenerative changes. Possible left posterior iliac bone island. No acute findings. IMPRESSION: Mild edematous fat stranding is seen along the mesoappendix and cecal mesentery, which is near the midline of the pelvis. The appendix itself is nondilated. This may be due to nonspecific mesenteritis and colitis. No abscess. No imaging signs of acute appendicitis. No small bowel obstruction. Mild wall thickening at the distal esophagus and throughout the stomach, not well assessed due to underdistention, possibly gastritis, there may be a small hiatal hernia. Consider endoscopy correlation if there is sufficient concern. Focal left adrenal nodule in the background adrenal thickening, consider adrenal protocol imaging to confirm that this is an adenoma. Other findings above Forms: PCP List Discharge Date/Time: 01/19/24 17:35
[2024-01-19 16:01] LABS: ALBUMIN 4.2 g/dL (3.2-5.5); ALBUMIN/GLOBULIN RATIO 2.1 (1.0-2.2); BILIRUBIN,TOTAL 0.7 mg/dL (0.2-1.0); CALCIUM 9.5 mg/dL (8.5-10.3); CREATININE 0.9 mg/dL (0.6-1.3); POTASSIUM 3.9 mmol/L (3.5-4.5); TOTAL PROTEIN 6.2 g/dL (6.4-8.9)
[2024-01-19] MEDS ORDERED: iohexoL-300 100 ML VIAL ONE (16:07)
[2024-01-19] MEDS: iohexoL-300 100 ML VIAL IVP ONE (16:22)
--- NOTE | 2024-01-19 16:38 | CT Report ---
PROCEDURE: Abdomen/Pelvis W INDICATIONS: R sided abd pain CONTRAST: Omni 300 100ml TECHNIQUE: After the administration of intravenous contrast, a CT scan of the abdomen and pelvis was performed. Images were recorded and evaluated at appropriate window settings. Reformats: coronal and sagittal. F or radiation dose reduction, the following was used: automated exposure control, adjustment of mA and /or kV according to patient size. COMPARISON: None FINDINGS: Image quality: Diagnostic Lower chest: Small Bochdalek's hernias, containing fat. Small hiatal hernia. Normal heart size where visualized Liver: There is suspected liver cysts. Subcentimeter lesions are too small characterize, usually also cysts or hemangiomas. Gallbladder and biliary system: Unremarkable, nondilated Pancreas: No ductal dilation Spleen: Nonenlarged Adrenals: There is bilateral thickening. Possible focal nodule on the left measures about 1.2 cm. Kidneys: Subcentimeter lesions are too small characterize, usually cysts. No solid renal mass. No hyd ronephrosis. Vessels and lymph nodes: The main portal vein is patent. No abdominal aortic aneurysm. No pathologic lymph nodes by size criteria. Bowel and peritoneum: There is nonspecific possible wall thickening of the stomach not well assessed due to underdistention. No acute small bowel obstruction. Colonic diverticula are present, without im aging signs of acute inflammation. Nondilated appendix. However, there is mild surrounding fat strand ing in the right inferior paracolic gutter. Body wall: Small fat-containing umbilical hernia Pelvis: Bladder is unremarkable and underdistended. Uterus is absent. Bones: Degenerative changes. Possible left posterior iliac bone island. No acute findings. IMPRESSION: Mild edematous fat stranding is seen along the mesoappendix and cecal mesentery, which is near the mi dline of the pelvis. The appendix itself is nondilated. This may be due to nonspecific mesenteritis a nd colitis. No abscess. No imaging signs of acute appendicitis. No small bowel obstruction. Mild wall thickening at the distal esophagus and throughout the stomach, not well assessed due to und erdistention, possibly gastritis, there may be a small hiatal hernia. Consider endoscopy correlation if there is sufficient concern. Focal left adrenal nodule in the background adrenal thickening, consider adrenal protocol imaging to confirm that this is an adenoma. Other findings above Reviewed by: Ghanshyam Contreras MD on 01/19/2024 4:37 PM PDT Approved by: Ghanshyam Contreras MD on 01/19/2024 4:37 PM PDT Station ID: [id number]
[2024-01-19 16:53] LABS: BILIRUBIN,URINE NEGATIVE (NEGATIVE); GLUCOSE, URINE (UA) NEGATIVE (NEGATIVE); KETONES,URINE (UA) 40 mg/dL (NEGATIVE); LEUKOCYTE ESTERASE, URINE NEGATIVE (NEGATIVE); NITRITE,URINE NEGATIVE (NEGATIVE); OCCULT BLOOD,URINE NEGATIVE (NEGATIVE); PROTEIN,URINE NEGATIVE (NEGATIVE); UROBILINOGEN,URINE 0.2 (NORMAL) E.U./dL (NORMAL)
[2024-01-19 16:58] LABS: CLARITY,URINE CLEAR (CLEAR)
[2024-01-19 17:40] VITALS: BP 167/67; O2SAT 100
--- NOTE | 2024-01-19 17:58 | Ultrasound Report ---
PROCEDURE: Abdomen Limited INDICATIONS: RUQ abd pain TECHNIQUE: Real-time focused scanning was performed of the abdomen, with image documentation. COMPARISONS: CT of abdomen and pelvis from the same date.. FINDINGS: Liver: Liver is normal in size. Mildly increased liver parenchymal echotexture is seen. Multiple sim ple appearing hepatic cysts are noted measures up to 3.2 x 4.2 cm in size in right hepatic lobe and s how no internal vascularity. Gallbladder: No gallstones, sludge, wall thickening or pericholecystic edema. Biliary ducts: Intrahepatic bile ducts are non-dilated. Extrahepatic bile duct caliber measures 4.6 mm. Normal is 6-7 mm or less in diameter, or 10 mm or less post-cholecystectomy. Pancreas: Visualized portions of the pancreas are sonographically normal. Right kidney: Normal in size and echotexture. Right kidney measures 10.7 cm long. No hydronephrosis or nephrolithiasis. No solid masses. No complex renal cystic lesions which require follow-up. Simple -appearing right renal cysts are seen measures up to 1 cm in size. IVC: Intrahepatic inferior vena cava is patent. Miscellaneous: No free abdominal fluid. IMPRESSION: 1. Mild hepatic steatosis. No discrete hepatic lesion. 2. Normal-appearing gallbladder. No biliary ductal dilatation. 3. Simple appearing hepatic cysts and right renal cysts. No solid appearing lesions. Reviewed by: Chano Novoa MD on 01/19/2024 5:57 PM PDT Approved by: Chano Novoa MD on 01/19/2024 5:57 PM PDT Station ID: [id number]
== END 2024-01-19 17:35 | disposition home or self-care (01) ==
LOC: ED 14:30
DX: B02.9 Zoster without complications (principal); I10 Essential (primary) hypertension; E78.00 Pure hypercholesterolemia, unspecified; Z79.82 Long term (current) use of aspirin; Z79.899 Other long term (current) drug therapy
CPT/HCPCS: 36415; 80053; 81001; 81003; 83690; 85025; 87086; 96374; 99284